=== PATIENT | male | born 1960 | race African-American/Black ===

== ENCOUNTER 2018-05-17 14:45 | Emergency (ER) | payer OTHER ==
[~2018-05-17] VITALS: Ht 170.2 cm; Wt 95.3 kg
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
[2018-05-17] MEDS ORDERED: IBUPROFEN800 MG ORAL (15:28)
[2018-05-17 15:40] VITALS: BP 166/99
--- NOTE | 2018-05-17 16:25 | Diagnostic Imaging Report ---
Indication: Pain Technique: XRAY Knee 3v R Comparison: None Findings: No acute fracture or dislocation. Joint spaces and alignment preserved. No radiopaque foreign body identified. No suprapatellar joint effusion. Impression: No acute fracture or dislocation.
== END 2018-05-17 16:00 | disposition home or self-care (01) ==
LOC: EMR 15:46
DX: S89.91XA Unspecified injury of right lower leg, initial encounter (principal); V03.90XA Pedestrian on foot injured in collision with car, pick-up truck or van, unspecified whether traffic or nontraffic accident, initial encounter; Y92.410 Unspecified street and highway as the place of occurrence of the external cause
CPT/HCPCS: 99283